=== PATIENT | female | born 1995 | race Two or more races ===

== ENCOUNTER 2017-07-27 16:22 | Emergency (ER) | payer MEDICAID ==
[~2017-07-27] VITALS: Ht 157.5 cm; Wt 53.6 kg
[2017-07-27 17:28] VITALS: BP 113/65
[2017-07-27 17:36] LABS: HCG UR SG 1.022 (1.003-1.030)
[2017-07-27 17:47] LABS: CLUE CELLS NONE SEEN (NONE SEEN); WET PREP WBCS NONE SEEN (FEW)
[2017-07-27 17:58] LABS: MICROSCOPIC INDICATED
[2017-07-27 18:08] LABS: CULTURE INDICATED? NO
== END 2017-07-27 19:49 | disposition home or self-care (01) ==
LOC: ED 19:30
DX: N89.8 Other specified noninflammatory disorders of vagina (principal)
CPT/HCPCS: 81001; 81025; 87210; 87491; 87591; 87808; 99284

== ENCOUNTER 2019-03-11 10:06 | Emergency (ER) | payer MEDICAID ==
[~2019-03-11] VITALS: Ht 157.5 cm; Wt 50.3 kg
--- NOTE | 2019-03-11 10:26 | NUR ---
PT AMBULATORY WITH STEADY GAIT TO ROOM. CHANGING INTO GOWN NOW AND ATTEMPTING TO PROVIDE URINE SAMPLE.
--- NOTE | 2019-03-11 10:45 | NUR ---
PT HERE FOR WEAKNESS, BURNING WITH URINATION, AND LOWER ABDOMINAL PAIN THAT STARTED LAST NIGHT AFTER HAVING INTERCOURSE WITH HER BOYFRIEND. PT STATES SHE HAS HAD SOME RECENT VAGINAL DISCHARGE. PT HAS PROVIDED URINE SAMPLE. IS AT BEDSIDE. PT CONNECTED TO MONITOR. NADN. PEDERSEN.
[2019-03-11 10:55] LABS: CULTURE INDICATED? YES
[2019-03-11] MEDS ORDERED: SODIUM CHLORIDE 0.9% 1,000ML IVBOLUS ONE (11:00)
[2019-03-11] MEDS ORDERED: MORPHINE SULFATE 4 MG/ML, 1ML IVPush PRN (11:00)
[2019-03-11] MEDS ORDERED: ONDANSETRON 2MG/ML, 2ML IVPush ONE (11:00)
[2019-03-11 11:03] LABS: MICROSCOPIC INDICATED
--- NOTE | 2019-03-11 11:13 | NUR ---
PIV STARTED. UNABLE TO DRAW LABS OFF OF PIV- LAB NOW AT BEDSIDE DRAWING LABS. PT MEDICATED PER EMAR. RESTING ON ALICIA. RACHEL. RAULS.
[2019-03-11] MEDS ORDERED: ONDANSETRON 2MG/ML, 2ML ONE ×2 (11:15→15:30)
[2019-03-11] MEDS ORDERED: MORPHINE SULFATE 4 MG/ML, 1ML ONE (11:15)
[2019-03-11 11:44] LABS: BASOPHILS # (AUTO) 0.04 x10^3/uL (0-0.1); BASOPHILS % (AUTO) 0 % (0-1); EOSINOPHILS # (AUTO) 0.07 x10^3/uL (0-0.4); EOSINOPHILS % (AUTO) 1 % (1-7); LYMPHOCYTES # (AUTO) 2.54 x10^3/uL (1-3.4); LYMPHOCYTES % (AUTO) 23 % (22-44); MD NO; MEAN CORPUSCULAR HEMOGLOBIN 31.5 pg (27.0-34.8); MEAN CORPUSCULAR HGB CONC 33.6 g/dL (32.4-35.8); MEAN CORPUSCULAR VOLUME 93.7 fL (80-100); MEAN PLATELET VOLUME 8.7 fL (7.4-10.4); MONOCYTES # (AUTO) 0.41 x10^3/uL (0.2-0.8); MONOCYTES % (AUTO) 4 % (2-9); NEUTROPHILS # (AUTO) 7.81 x10^3/uL (1.8-6.8); NEUTROPHILS % (AUTO) 72 % (42-75); PLATELET COUNT 234 x10^3/uL (130-400); RED BLOOD COUNT 3.81 x10^6/uL (3.82-5.3); RED CELL DISTRIBUTION WIDTH 12.9 % (9.6-15.2)
[2019-03-11 11:56] LABS: CHLORIDE 110 mmol/L (98-107)
[2019-03-11 12:05] LABS: ALANINE AMINOTRANSFERASE 29 U/L (12-78); ALBUMIN 3.7 g/dL (3.4-5.0); ALKALINE PHOSPHATASE 62 U/L (45-117); ANION GAP 9 mmol/L (5-15); BILIRUBIN,TOTAL 0.6 mg/dL (0.2-1.0); CREATININE 0.68 mg/dL (0.55-1.02); TOTAL PROTEIN 6.8 g/dL (6.4-8.2)
--- NOTE | 2019-03-11 12:50 | NUR ---
PT IN CT NOW.
--- NOTE | 2019-03-11 13:01 | NUR ---
PT BACK FROM CT. RESTING ON ALICIA. RACHEL. VSS. DENIES NEEDS.
[2019-03-11] MEDS ORDERED: DIPHENHYDRAMINE 50 MG/ML, 1ML IVPush ONE (13:30)
--- NOTE | 2019-03-11 13:30 | NUR ---
REPORT GIVEN TO KIM ALY.
--- NOTE | 2019-03-11 13:33 | NUR ---
Report from Gloria ALVAREZ. Pt with hives on bilat legs, back, abd as well as swelling on L face. Dr. Davies aware, orders received for Benadryl IV. Pt denies pain currently, resp even and unlabored, NADN. Pt aware she is to be NPO, verbalizes understanding. Awaiting OR scheduling.
[2019-03-11] MEDS ORDERED: DIPHENHYDRAMINE 50 MG/ML, 1ML ONE (13:48)
--- NOTE | 2019-03-11 13:54 | NUR ---
Pt medicated per MAY. Pt resting in bed, NADN. MCCORMICK at bedside to evaluate pt.
--- NOTE | 2019-03-11 14:16 | NUR ---
Pt with syncopal episode on her way back from the bathroom, she was assisted to the floor by her significant other. Pt assisted back to bed by this RN and other staff member. Pt A&O x4, denies pain or other needs at this time. All monitors reapplied. Dr. Davies made aware of events, at bedside to evaluate pt, no new orders at this time.
[2019-03-11 14:18] VITALS: BP 112/76
[2019-03-11] MEDS ORDERED: SILVER NITRATE STICK TP ONE (14:48)
[2019-03-11] MEDS ORDERED: BUPIVACAINE/PF-EPI 0.25% 1:200K ONE (14:48)
--- NOTE | 2019-03-11 14:58 | NUR ---
Called OR to give report. Pt taken to OR via [employer].
[2019-03-11] MEDS ORDERED: DEXAMETHASONE 4 MG/ML, 1ML ONE (15:30)
[2019-03-11] MEDS ORDERED: PROPOFOL 10 MG/ML, 50ML ONE (15:30)
[2019-03-11] MEDS ORDERED: MIDAZOLAM 1 MG/ML, 5ML ONE (15:30)
[2019-03-11] MEDS ORDERED: KETOROLAC 30 MG/1 ML ONE (15:30)
[2019-03-11] MEDS ORDERED: SUCCINYLCHOLINE 20 MG/ML, 10ML ONE (15:30)
[2019-03-11] MEDS ORDERED: FENTANYL PF 100 MCG/2ML ONE ×2 (15:30→17:12)
[2019-03-11] MEDS ORDERED: CEFAZOLIN 1,000 MG ONE (15:30)
[2019-03-11] MEDS ORDERED: PROPOFOL 10 MG/ML, 20ML ONE (15:30)
[2019-03-11] MEDS ORDERED: ROCURONIUM 10MG/ML,5ML ONE (15:30)
[2019-03-11] MEDS ORDERED: DIAZEPAM 5 MG/ML, 2ML IVPush PRN (16:00)
[2019-03-11] MEDS ORDERED: ONDANSETRON 2MG/ML, 2ML IV PRN ×2 (16:00→20:30)
[2019-03-11] MEDS ORDERED: MIDAZOLAM 1 MG/ML, 2ML IV PRN (16:00)
[2019-03-11] MEDS ORDERED: EPHEDRINE 50 MG/ML, 1ML IM PRN (16:00)
[2019-03-11] MEDS ORDERED: PROMETHAZINE 25 MG/ML, 1ML IV PRN (16:00)
[2019-03-11] MEDS ORDERED: EPHEDRINE 50 MG/ML, 1ML IVPush PRN (16:00)
[2019-03-11] MEDS ORDERED: HYDROmorphone 2 MG/ML, 1ML IVPush PRN (16:00)
[2019-03-11] MEDS ORDERED: FENTANYL PF 100 MCG/2ML IV PRN ×2 (16:00→20:30)
[2019-03-11] MEDS ORDERED: ONDANSETRON ODT 8 MG PO PRN (16:00)
[2019-03-11] MEDS ORDERED: DIPHENHYDRAMINE 50 MG/ML, 1ML IVPush PRN (16:00)
[2019-03-11] MEDS ORDERED: ACETAMINOPHEN 325 MG TABLET PO PRN (16:00)
[2019-03-11] MEDS ORDERED: OXYcodone 5 MG/5 ML ORAL.SOL UDC PO PRN (16:00)
[2019-03-11] MEDS ORDERED: BUPIVACAINE/PF-EPI 0.25% 1:200K INFIL ONE (16:01)
[2019-03-11] MEDS ORDERED: MEPERIDINE/PF 25MG/ML,1ML ONE (17:12)
[2019-03-11] MEDS ORDERED: OXYcodone 5 MG/5 ML ORAL.SOL UDC ONE ×2 (17:12→18:24)
[2019-03-11] MEDS: MEPERIDINE/PF 25MG/ML,1ML IVPush PRN ×2 (17:16→17:50)
[2019-03-11] MEDS ORDERED: ACETAMINOPHEN 650 MG/20.3 ML UDC ONE (17:45)
[2019-03-11] MEDS ORDERED: OXYC-302 PO ×2 (20:00→20:01)
[2019-03-11] MEDS ORDERED: IBUP-1223 PO (20:01)
[2019-03-11] MEDS ORDERED: DOCU-131 PO (20:02)
[2019-03-11] MEDS ORDERED: OXYcodone/APAP 5/325MG TABLET PO PRN (20:30)
[2019-03-11] MEDS ORDERED: IBUPROFEN 600 MG TABLET PO PRN (20:30)
== END 2019-03-11 21:30 | disposition home or self-care (01) ==
LOC: ED 14:14 → 4NE 18:35 → ED 21:30
DX: N83.202 Unspecified ovarian cyst, left side (principal)
CPT/HCPCS: 36415; 74177; 80053; 81001; 83690; 84702; 85025; 86850; 86900; 87040; 87077; 87086; 87186; 93005; 96374; 96375; 96376; 99284; J1200; J2175; J2270; J2405; J7030; G0378; J0690; J1100; J1885; J2250; J2704; J3010; J0330

== ENCOUNTER 2019-03-13 03:16 | Emergency (ER) | payer MEDICAID ==
[~2019-03-13] VITALS: Ht 157.5 cm; Wt 54.5 kg
[~2019-03-13 03:16] MED LIST: DEXAMETHASONE 4 MG/ML, 1ML ONE; DOCU-131 PO; FENTANYL PF 250 MCG/5ML ONE; IBUP-1223 PO; KETOROLAC 30 MG/1 ML ONE; MIDAZOLAM 1 MG/ML, 2ML ONE; ONDANSETRON 2MG/ML, 2ML ONE; OXYC-302 PO; PROPOFOL 10 MG/ML, 20ML ONE; PROPOFOL 50 ML ONE; ROCURONIUM 10MG/ML,5ML ONE; SUCCINYLCHOLINE 20 MG/ML, 10ML ONE
[2019-03-13 03:19] VITALS: BP 121/66
--- NOTE | 2019-03-13 03:40 | NUR ---
THIS IS A 24Y F THAT WAS SEEN YESTERDAY FOR RUPTURED CYST AND WAS TAKEN TO OR. PT RETURNS THIS AM FOR CULTURE REDRAW AND REPEAT UA. YESTERDAY UA RESULTED SHOWING AND INFECTION. PT AMBULATORY WITH SLOW STEADY GAIT. AT BEDSIDE. NADN CALL LIGHT IN REACH
--- NOTE | 2019-03-13 03:52 | NUR ---
PT UP TO RESTROOM FOR URINE SAMPLE PT EDUCATED ON CLEAN CATCH METHOD
[2019-03-13 03:59] LABS: BASOPHILS # (AUTO) 0.03 x10^3/uL (0-0.1); BASOPHILS % (AUTO) 0 % (0-1); EOSINOPHILS % (AUTO) 1 % (1-7); LYMPHOCYTES # (AUTO) 4.37 x10^3/uL (1-3.4); LYMPHOCYTES % (AUTO) 48 % (22-44); MD NO; MEAN CORPUSCULAR HEMOGLOBIN 31.5 pg (27.0-34.8); MEAN CORPUSCULAR HGB CONC 33.4 g/dL (32.4-35.8); MEAN CORPUSCULAR VOLUME 94.4 fL (80-100); MEAN PLATELET VOLUME 8.4 fL (7.4-10.4); MONOCYTES # (AUTO) 0.57 x10^3/uL (0.2-0.8); MONOCYTES % (AUTO) 6 % (2-9); NEUTROPHILS # (AUTO) 4.01 x10^3/uL (1.8-6.8); NEUTROPHILS % (AUTO) 44 % (42-75); PLATELET COUNT 203 x10^3/uL (130-400); RED CELL DISTRIBUTION WIDTH 13.1 % (9.6-15.2)
--- NOTE | 2019-03-13 04:00 | NUR ---
URINE SENT TO LAB
[2019-03-13 04:04] LABS: ALANINE AMINOTRANSFERASE 49 U/L (12-78); ALBUMIN 3.4 g/dL (3.4-5.0); ANION GAP 6 mmol/L (5-15); CHLORIDE 111 mmol/L (98-107); CREATININE 0.78 mg/dL (0.55-1.02)
[2019-03-13 04:07] LABS: ALKALINE PHOSPHATASE 72 U/L (45-117); BILIRUBIN,TOTAL 0.3 mg/dL (0.2-1.0); TOTAL PROTEIN 6.7 g/dL (6.4-8.2)
[2019-03-13 04:25] LABS: CULTURE INDICATED? YES; MICROSCOPIC INDICATED
[2019-03-13] MEDS ORDERED: CEFDINIR 300 MG CAPSULE PO ONE (05:00)
[2019-03-13] MEDS ORDERED: CEFDINIR 300 MG CAPSULE ONE (05:16)
== END 2019-03-13 05:28 | disposition home or self-care (01) ==
LOC: ED 04:06
DX: N30.00 Acute cystitis without hematuria (principal); Z72.89 Other problems related to lifestyle
CPT/HCPCS: 36415; 80053; 81001; 83605; 84145; 85025; 87040; 87077; 87086; 87186; 99283; J0330; J1100; J1885; J2250; J2405; J2704; J3010